=== PATIENT | male | born 1940 | race Caucasian/White ===

== ENCOUNTER 2023-11-26 15:46 | Outpatient (RCR) | payer MEDICARE, OTHER, SELFPAY | END 2023-11-26 23:59 | disposition home or self-care (01) | LOC: CRHB 15:46 | PROVIDERS: ATTENDING PHYSICIAN Internal Medicine Interventional Cardiology | DX: I25.10 Atherosclerotic heart disease of native coronary artery without angina pectoris (principal); Z95.5 Presence of coronary angioplasty implant and graft; I25.2 Old myocardial infarction | CPT/HCPCS: G0422; G0423 ==

== ENCOUNTER → 2024-11-22 09:56 | Outpatient (REF) | payer MEDICARE, OTHER, SELFPAY | LOC: RCS 09:56 | PROVIDERS: ATTENDING PHYSICIAN Internal Medicine Interventional Cardiology; FAMILY PHYSICIAN Family Medicine | DX: I25.2 Old myocardial infarction (principal) | CPT/HCPCS: 93306 ==

== ENCOUNTER 2025-01-23 09:39 | Emergency (ER) | payer MEDICARE, OTHER, SELFPAY ==
[2025-01-23] VITALS (8 sets, daily range): BP systolic 111–145; BP diastolic 53–62
[2025-01-23 10:09] LABS: % Basophils 0.6 % (0-2); % Eosinophils 5.8 % (0-6); % Immature Granulocytes 0.3 % (0-0.5); % Lymphocytes 22.6 % (20.5-51.1); % Neutrophils 61.7 % (42.2-75.2); Absolute Eosinophils 0.4 10^3/uL (0-0.7); Absolute Lymphocytes 1.6 10^3/uL (1.2-3.4); Absolute Monocytes 0.7 10^3/uL (0.1-0.6); Absolute Neutrophils 4.5 10^3/uL (1.4-6.5); Hematocrit 37.4 % (39.0-52.0); Hemoglobin 12.6 g/dL (13.0-18.0); Mean Corp Hgb Conc. 33.7 g/dL (33.0-37.0); Mean Corpuscular Hgb 29.7 pg (27.0-31.0); Mean Corpuscular Volume 88.2 fL (80.0-94.0); Mean Platelet Volume 10.8 fL (7.4-10.4); Nucleated Red Blood Cells % 0 % (-); Platelet Count 190 10^3/uL (130-400); Red Blood Cell Count 4.24 10^6/uL (4.70-6.10); Red Cell Dist. Width 13.4 % (11.5-14.5); White Blood Cell Count 7.3 10^3/uL (4.8-10.8)
[2025-01-23 10:17] LABS: ALT (SGPT) 34 U/L (0-50); AST (SGOT) 33 U/L (17-59); Albumin 3.4 g/dl (3.5-5.0); Alkaline Phosphatase 158 U/L (38-126); Blood Urea Nitrogen 25 mg/dl (9-20); Calcium 9.1 mg/dl (8.4-10.2); Carbon Dioxide 30 mmol/L (22-30); Chloride 107 mmol/L (98-107); Estimated Creatinine Clearance 53 ml/min; Glucose 93 mg/dl (70-99); Potassium 4.5 mmol/L (3.5-5.1); Sodium 140 mmol/L (135-145); Total Bilirubin 0.8 mg/dl (0.2-1.3); Total Protein 6.3 g/dl (6.3-8.2); eGFR > 60.00
[2025-01-23 10:29] LABS: Troponin I < 0.012 ng/ml
--- NOTE | 2025-01-23 10:41 | ED.GENMED ---
History of Present Illness
General
Chief Complaint: Chest Pain
Source: patient
Exam Limitations: none
Time Seen by Provider: 01/23/25 09:52
Nursing documentation reviewed up to this point in time: agreed with
History of Present Illness
History of Present Illness:
84-year-old male past medical history of CAD status post 2 stents, hypertension hyperlipidemia, presenting to the emergency department with concerns of central chest pressure starting last night at 10 PM roughly 12 hours prior to arrival to the
emergency department. Took an aspirin last night again this morning as well as 2 nitro doses symptoms not fully resolved. EMS did bring the patient in. No ongoing chest pain or shortness of breath at this point. Pain was rating to the left arm
some mild shortness of breath associated when she did have symptoms no nausea vomiting or diaphoresis.
Past History
Past History
ED Past Medical History: Other (TATITLEK w/ B Aids, Glaucoma, Hiatel hernia)
ED Past Surgical History: Orthopedic
Social History
Tobacco: Non-smoker
Alcohol: None
Drug: None
Personal:
Living: with family
Employment: Employed
Family History
Family History: Negative Early CAD
Review of Systems
Review of Systems
Allergies reviewed?: Yes
All Other Systems: ROS reviewed and negative except as documented in HPI and ROS
Phy Exam
Physical Exam
Physical Exam:
GENERAL: Alert , in no apparent distress
EYE: pupils equal and reactive
NECK: Supple, no significant adenopathy.
ENT: o/p clr, mmm.
CARDIAC: Regular rate and rhythm .
LUNGS: Clear breath sounds bilaterally, no acute respiratory distress, no wheezes/rales/rhonchi
ABDOMEN: Soft, without focal tenderness, no r/g, no cvat
NEUROLOGICAL: Alert and oriented, no focal neuro deficits
SKIN: Warm and dry, skin intact.
MUSCULOSKELETAL: No edema, well perfused.
PSYCH: Normal and appropriate interaction.
Scores
Heart Score for Chest Pain Patients
STEMI patient?: No
History: Slightly or Non-Suspicious
ECG: Nonspecific Repolarization
Age: >/= 65 years
Risk Factors: >/= 3 Risk Factors or History of CAD
Troponin: </= Normal Limit
Heart Score for Chest Pain Patients: 5
Heart Score Risk: 20.3% MACE over next 6 weeks
Course
Orders/Labs/Results
Orders:
Orders
01/23/25 09:50
EKG [Electrocardiogram (*1)] Urgent
Reason for Study: Chest Pain
01/23/25 09:51
EKG- Treatment ONCE
01/23/25 09:52
Complete Blood Count/With Diff Urgent
Comprehensive Metabolic Panel Urgent
Troponin I Urgent
01/23/25 09:56
Chest [CR Chest - 2 Views ] Urgent
Comment:
Reason For Exam: cp
01/23/25 12:27
Electrocardiogram (*1) Urgent
Reason for Study: Chest Pain
EKG- Treatment ONCE
01/23/25 13:11
Troponin I Urgent
Abnormal Lab Results
01/23/25
09:52
RBC 4.24 L 10^6/uL
(4.70-6.10)
Hgb 12.6 L g/dL
(13.0-18.0)
Hct 37.4 L %
(39.0-52.0)
MPV 10.8 H fL
(7.4-10.4)
Absolute Monos (auto) 0.7 H 10^3/uL
(0.1-0.6)
BUN 25 H mg/dl
(9-20)
Alkaline Phosphatase 158 H U/L
(38-126)
Albumin 3.4 L g/dl
(3.5-5.0)
01/23/25 09:52
01/23/25 09:52
Vital Signs
Initial and Last Documented VS:
Initial Vital Signs
Pulse Resp BP Pulse Ox
64 18 132/62 100
01/23/25 09:42 01/23/25 09:42 01/23/25 09:42 01/23/25 09:42
Last Documented Vital Signs
Pulse Resp BP Pulse Ox
58 15 136/54 100
01/23/25 14:30 01/23/25 14:30 01/23/25 14:16 01/23/25 14:30
MDM/Problems Addressed
MDM/Problems Addressed:
84-year-old male presenting to the emergency department today with concerns of chest discomfort starting last night now resolved after receiving nitro and aspirin en route via EMS. Received a full aspirin en route. Vital signs normal on arrival.
EKG without significant changes from previous no signs of ischemia or arrhythmia labs obtained without acute abnormalities troponin negative. Repeated EKG and troponin normal no emergent findings asymptomatic for 6 hours here stable for close
outpatient follow-up. Return precautions given.
*Critical Care Note
Total Time (30-74mins, 75-104mins- exclusive of procedures): Not Applicable
ED Attending Note
-
Portions of this chart may have been created with voice recognition software.� Occasional wrong word or��sound alike� substitutions may have occurred due to the inherent limitations of voice recognition software.
Discharge Plan
Departure
Patient Disposition: Home (Routine Discharge)
Date of Disposition: 01/23/25
Time of Disposition: 15:45
Patient with high blood pressure during this ER visit?: No
Condition: Good
Covid-19: Not Applicable
Discharge Problem:
Chest pain
Instructions: Chest Pain DCA Follow Up
Prescriptions:
No Action
multivitamin Tablet
1 tab PO NOON
latanoprost 0.005 % drops
1 drp BOTH EYES HS
cholecalciferol (vitamin D3) [Vitamin D3] 25 mcg (1,000 unit) Tablet
25 mcg PO NOON
brimonidine-timolol [Combigan] 0.2-0.5 % drops
1 drp BOTH EYES BID
Brilinta 90 mg Tablet
90 mg PO BID Qty: 60 11RF
atorvastatin 40 mg Tablet
40 mg PO QPM Qty: 30 11RF
pantoprazole 40 mg Tablet,Delayed Release (Dr/Ec)
40 mg PO DAILY Qty: 30 11RF
aspirin 81 mg Tablet,Chewable
81 mg PO DAILY Qty: 30 0RF
lisinopril 2.5 mg tablet
2.5 mg PO DAILY Qty: 30 11RF
metoprolol succinate 25 mg tablet extended release 24 hr
25 mg PO DAILY
Rx Instructions:
06/27/2023, patient is instructed to take half a tablet of this medication according the the pharmacy records but takes a full tablet instead.
colchicine 0.6 mg tablet
0.3 mg PO BID Qty: 14 0RF
Referrals:
Adrián Alas MD [Family Provider] -
Activity Restrictions/Additional Instructions:
You came to the emergency department today with concerns of chest pain. Here you have a reassuring assessment. Please help closely with your instructor traffic safety. Return for any worsening, new or concerning symptoms.
Interventions
Interventions:
*Risk Screen - Suicide Last Done: 01/23/25 10:00
*General Assessment Last Done: 01/23/25 10:00
*Neglect/Abuse Screening Last Done: 01/23/25 10:00
*ED- Fall Risk Assessment Last Done: 01/23/25 10:00
ED- Cardiac Assessment Last Done: 01/23/25 10:00
Discharge Date and Time
Print Language: THAI
[2025-01-23 13:47] LABS: Troponin I < 0.012 ng/ml
== END 2025-01-23 16:16 | disposition home or self-care (01) ==
LOC: EMR 09:39
PROVIDERS: Physician Assistant; EMERGENCY PHYSICIAN Student in an Organized Health Care Education/Training Program; FAMILY PHYSICIAN Family Medicine
DX: R07.89 Other chest pain (principal); I10 Essential (primary) hypertension; I25.10 Atherosclerotic heart disease of native coronary artery without angina pectoris; E78.5 Hyperlipidemia, unspecified
CPT/HCPCS: 99285; 71046; 80053; 84484; 85025; 93005

== ENCOUNTER → 2025-02-03 10:45 | Outpatient (REF) | payer MEDICARE, OTHER, SELFPAY | LOC: HWRCS 10:45 | PROVIDERS: ATTENDING PHYSICIAN Nurse Practitioner; FAMILY PHYSICIAN Family Medicine | DX: I25.2 Old myocardial infarction (principal); I21.19 ST elevation (STEMI) myocardial infarction involving other coronary artery of inferior wall | CPT/HCPCS: 78452; 93017; A9500; J2785 ==